=== PATIENT | male | born 1970 | race Two or more races ===

== ENCOUNTER → 2016-11-21 | Outpatient (CLI) | payer OTHER ==
[~2016-11-21] MED LIST: ACID REFLUX MED; FLUOXETINE HCL40 M1 PO; KEFLEX500 MG PO; LIBRAX CAPSULE1 CA1 PO; NO MEDICATIONS; PANTOPRAZOLE SO40 MG PO; PHENERGAN25 M1 PO; ZANTAC300 MG PO; ZESTRIL10 M1 PO
--- NOTE | ~2016-11-21 | US5 ---
[facility] A Service of [facility] RADIOLOGY TEXT RESULTS PATIENT: VERÓNICA MARTINEZ LOCATION: [facility] : 68 UNIT #: [id number] AGE: [address]: Aleksey Lam MD SEX: M ORDER DR: [id number] [place], [place] [address] [id number] MR#: [id number] #: [id number] NAME: VERÓNICA MARTINEZ : 1970 SEX: M STUDY DATE/TIME: 11/21/2016 10:12 UNIT: [facility] ROOM: STUDY DESCRIPTION: US Abdominal Complete Attending Physician: Aleksey Lam M.D. Referring Physician: Aleksey Lam M.D. Ordering Physician: Aleksey Lam M.D. Primary Care Physician: Aleksey Lam M.D. MEDICAL IMAGING REPORT This report is preliminary unless electronic signature is present EXAM Abdominal ultrasound complete, 11/21/2016. HISTORY Abnormally elevated liver enzymes at last doctor's visit one month ago. FINDINGS The liver is homogeneous in echotexture and demonstrates no cystic or solid mass lesions. The intra and extrahepatic bile ducts are not dilated. The gallbladder is normal with no evidence of cholelithiasis, wall thickening, or pericholecystic fluid. The common duct measures 3 mm. The pancreas is poorly visualized due to overlying bowel gas. The spleen measures 8.8 cm in greatest diameter. The visualized portions of the abdominal aorta and inferior vena cava within normal limits. The kidneys are normal bilaterally. IMPRESSION Poor visualization of the pancreas due to overlying bowel gas. Otherwise negative abdominal ultrasound. Dictated by... Timothy Aguilar M.D. THIS IS AN ELECTRONICALLY VERIFIED REPORT Timothy Aguilar M.D. at 11/22/2016 7:33 AM ZENON/bladimir TD: 11/21/2016 16:35 JOB #: [id number] MEDICAL IMAGING REPORT [facility] A Service of [facility] RADIOLOGY TEXT RESULTS PATIENT: VERÓNICA MARTINEZ LOCATION: [facility] #: [id number] : 68 UNIT #: [id number] AGE: [address]: Aleksey Lam MD SEX: M ORDER DR: Page 1 of 1 COPY
== END | disposition home or self-care (01) ==
LOC: CGUS 09:30
DX: R74.8 Abnormal levels of other serum enzymes (principal)
CPT/HCPCS: 76700